=== PATIENT | male | born 1950 | race Caucasian/White ===

== ENCOUNTER → 2017-12-13 | Outpatient (CLI) | payer OTHER ==
[2017-12-03 13:37] VITALS: Ht 180.3 cm; Wt 120.5 kg
--- NOTE | 2017-12-03 14:17 | PAT Medication Instructions ---
Service Date Dec 03, 2017. Current Home Medication List Amlodipine Besylate-Atorvastat (Amlodipine Besylate/Atorv), 1 TAB PO Aspirin (Aspirin Ec), 81 MG PO QPM Cinnamon (Cinnamon Extract), 2 TAB PO QAM Clonazepam (Klonopin), 0.5 MG PO DAILY PRN for Anxiety/Insomnia Jhdhrwsizak-Sajnjpfxmqm-Lrq C- (Glucosamine 1500 Complex), 2 CAP PO QAM Lisinopril (Zestril), 40 MG PO QPM Metformin Hcl (Glucophage), 500 MG PO BID Metoprolol Succinate (Metoprolol Succinate ER), 200 MG PO QPM Ranitidine (Zantac), 150 MG PO BID Sertraline (Zoloft), 50 MG PO QAM Sertraline (Zoloft), 150 MG PO QPM Tramadol (Ultram), 100 MG PO Q4H PRN for Pain Zolpidem Tartrate (Zolpidem Tartrate), 1 TAB PO HS [chondrotin msm], 1,103 MG PO QAM Medication Instructions For Your Scheduled Surgery - Hold the following medications 2 weeks prior to surgery: [chondrotin msm], 1,103 MG PO QAM Wksswnknrmu-Skzahdovlbh-Cta C- (Glucosamine 1500 Complex), 2 CAP PO QAM Cinnamon (Cinnamon Extract), 2 TAB PO QAM - Hold the following medications 24 hours prior to surgery: Lisinopril (Zestril), 40 MG PO QPM - Hold the following medications the morning of surgery: Metformin Hcl (Glucophage), 500 MG PO BID - Take the following medications the morning of surgery with a sip of water: Tramadol (Ultram), 100 MG PO Q4H PRN for Pain (okay to take up to 4 hours prior to surgery if needed) Sertraline (Zoloft), 50 MG PO QAM Ranitidine (Zantac), 150 MG PO BID Amlodipine Besylate-Atorvastat (Amlodipine Besylate/Atorv), 1 TAB PO QAM - Take the following medications as scheduled the night before surgery: Zolpidem Tartrate (Zolpidem Tartrate), 1 TAB PO HS Sertraline (Zoloft), 150 MG PO QPM Tramadol (Ultram), 100 MG PO Q4H PRN for Pain (if needed) Ranitidine (Zantac), 150 MG PO BID Metoprolol Succinate (Metoprolol Succinate ER), 200 MG PO QPM Clonazepam (Klonopin), 0.5 MG PO DAILY PRN for Anxiety/Insomnia (if needed) Aspirin (Aspirin Ec), 81 MG PO QPM Metformin Hcl (Glucophage), 500 MG PO BID If you have any questions please call us at [phone] or [phone] or [phone]
[2017-12-03 15:05] LABS: BASO % 0.4 %; BASO ABS # 0.02 K/uL (0-0.2); EOS % 1.8 %; HEMATOCRIT 39.8 % (42-52); HEMOGLOBIN 13.2 g/dL (14.0-18.0); IG# 0.03 K/uL (0.00-0.02); LYMPH % 26.7 %; LYMPH ABS # 1.48 K/uL (1.2-3.4); MEAN CELL VOLUME 88.1 fL (80-100); MEAN CORPUSCULAR HEMOGLOBIN 29.2 pg (25-34); MEAN CORPUSCULAR HGB CONC 33.2 g/dl (32-36); MEAN PLATELET VOLUME 9.2 fL (7.4-10.4); MONO % 9.2 %; MONO ABS # 0.51 K/uL (0.11-0.59); NEUT % 61.4 %; NEUT ABS # 3.41 K/uL (1.4-6.5); PLATELET COUNT 166 K/uL (130-400); RED CELL DISTRIBUTION WIDTH CV 13.8 % (11.5-14.5); RED CELL DISTRIBUTION WIDTH SD 44.3 fL (36.4-46.3); WHITE BLOOD COUNT 5.55 K/uL (4.8-10.8)
--- NOTE | 2017-12-03 15:05 | DIAGNOSTIC IMAGING REPORT ---
CHEST 2 VIEWS ROUTINE CLINICAL HISTORY: 67 years-old Male presenting with preoperative assessment. TECHNIQUE: PA and lateral views of the chest were obtained. COMPARISON: None. FINDINGS: Atherosclerosis of aortic arch. Cardiac silhouette enlarged. Median sternotomy wires and bypass graft rings noted. Mediastinal surgical clips. Lungs and pleural spaces clear. Degenerative changes of the thoracic spine. Upper abdomen normal. IMPRESSION: 1. No acute cardiopulmonary disease. Electronically signed by: Roge Herrera M.D. 12/03/2017 3:03 PM Dictated Date/Time: 12/03/2017 3:02 PM
[2017-12-03 15:16] LABS: ALBUMIN 3.9 gm/dl (3.4-5.0); CREATININE 1.11 mg/dl (0.60-1.40)
[2017-12-03 15:18] LABS: INR 0.9 (0.9-1.1); PTT PATIENT 24.1 SECONDS (21.0-31.0)
--- NOTE | 2017-12-09 13:25 | HISTORY & PHYSICAL EXAMINATION ---
DATE OF ADMISSION: 12/30/2017 CHIEF COMPLAINT: Left knee pain. HISTORY OF PRESENT ILLNESS: Daniel is a 67-year-old male with a 1 year history of left knee pain. The patient rates his pain at 10/10. He has pain with his daily activities. He has limited standing and walking tolerance. Pain is worse with weightbearing. The patient has had bracing and anti-inflammatories as well as Tylenol and tramadol through the years without relief. He has failed conservative treatment and is scheduled for left knee replacement. PAST SURGICAL HISTORY: Cardiac bypass and sinus surgery. SOCIAL HISTORY: The patient denies alcohol or tobacco use. He lives in a single story home. He is and retired. FAMILY HISTORY: Negative for DVT. MEDICATIONS: Hydrochlorothiazide 25 mg, Lovaza 1 gram, ropinirole 1 mg, metformin 500 mg b.i.d., lisinopril 20 mg, glucosamine 1500 mg, cyclobenzaprine 10 mg, Norvasc 10 mg, Zoloft 100 mg, Toprol-XL 200 mg, clonazepam 0.5 mg 3 times daily p.r.n., aspirin 81 mg daily, and Mobic 15 mg daily. ALLERGIES: None. REVIEW OF SYSTEMS: See HPI. Ten other systems reviewed, all negative. PHYSICAL EXAMINATION: VITAL SIGNS: Height 5 feet 11 inches, weight 264, BMI is 37. GENERAL: This is a well-developed, well-nourished male who is alert and oriented x3. Mood and affect are appropriate. HEENT: Normocephalic, atraumatic. Mucous membranes are moist and intact. NECK: Supple without lymphadenopathy. HEART: Regular rate and rhythm without murmurs, rubs or gallops. LUNGS: Clear to auscultation without wheezes or rhonchi. ABDOMEN: Soft and nontender. Bowel sounds are equal and active. EXTREMITIES: No ecchymosis, redness or warmth. He has varus deformity. Range of motion is from 5-115 degrees with +1 laxity. He has moderate effusion. He has no edema. He is neurovascularly intact with +5/5 strength. X-RAY EXAMINATION: AP and lateral views show joint space narrowing and osteophyte formation of the left knee. PLAN: The patient will be admitted for a left total knee arthroplasty. We will plan on aspirin for DVT prophylaxis. The patient will have [facility] for home physical therapy upon discharge. His PCP is Dr. Barraza at [facility].
[~2017-12-13] VITALS: Ht 180.3 cm; Wt 120.5 kg
[~2017-12-13] MED LIST: AMLO-272 PO; ASPI81TA28 PO; CINN500C13 PO; CLON0.5T3 PO; GLC/500 PO; GLUC15002 PO; LISI40TA PO; RANI150T85 PO; SERT-234 PO; SERT50TA PO; TPRSR/100 PO; TRAM-10 PO; ZOLP10TA6 PO; [UNRECOGNIZED DRUG - OTHER] PO
== END | disposition home or self-care (01) ==
LOC: C.LAB 08:00 → EDSTATUS 12-30 08:09
DX: Z01.812 Encounter for preprocedural laboratory examination (principal); Z01.810 Encounter for preprocedural cardiovascular examination; Z01.818 Encounter for other preprocedural examination

== ENCOUNTER → 2018-06-08 | Outpatient (CLI) | payer OTHER ==
[~2018-06-08] MED LIST changes: -CLON0.5T3 PO; +KLN/5 PO
--- NOTE | 2018-06-08 10:07 | DIAGNOSTIC IMAGING REPORT ---
CHEST 2 VIEWS ROUTINE CLINICAL HISTORY: Preoperative chest COMPARISON STUDY: December 03, 2017 FINDINGS: There are postsurgical changes of a midline sternotomy. The cardiac and mediastinal contours remain stable. Indistinctness left heart border remains unchanged and is felt to be chronic. Soft tissue prominence of the right paramediastinal region also remains stable.[ IMPRESSION: Stable findings. No active disease in the chest. Electronically signed by: Taz Tavares M.D. 06/08/2018 10:06 AM Dictated Date/Time: 06/08/2018 10:05 AM
[2018-06-08 12:16] LABS: BASO % 0.5 %; BASO ABS # 0.03 K/uL (0-0.2); EOS % 1.4 %; EOS ABS # 0.09 K/uL (0-0.5); HEMATOCRIT 41.1 % (42-52); HEMOGLOBIN 13.4 g/dL (14.0-18.0); IG# 0.06 K/uL (0.00-0.02); LYMPH % 26.1 %; LYMPH ABS # 1.73 K/uL (1.2-3.4); MEAN CELL VOLUME 91.1 fL (80-100); MEAN CORPUSCULAR HEMOGLOBIN 29.7 pg (25-34); MEAN CORPUSCULAR HGB CONC 32.6 g/dl (32-36); MONO % 6.9 %; MONO ABS # 0.46 K/uL (0.11-0.59); NEUT % 64.2 %; NEUT ABS # 4.25 K/uL (1.4-6.5); PLATELET COUNT 187 K/uL (130-400); RED CELL DISTRIBUTION WIDTH CV 13.6 % (11.5-14.5); RED CELL DISTRIBUTION WIDTH SD 44.5 fL (36.4-46.3); WHITE BLOOD COUNT 6.62 K/uL (4.8-10.8)
[2018-06-08 12:33] LABS: BLOOD UREA NITROGEN 20 mg/dl (7-18); CALCIUM 9.2 mg/dl (8.5-10.1); CARBON DIOXIDE 26 mmol/L (21-32); CREATININE 1.15 mg/dl (0.60-1.40); GLUCOSE 107 mg/dl (70-99); POTASSIUM 5.3 mmol/L (3.5-5.1); SODIUM 139 mmol/L (136-145)
[2018-06-08 12:35] LABS: INR 0.9 (0.9-1.1); PTT PATIENT 23.6 SECONDS (21.0-31.0)
== END | disposition home or self-care (01) ==
LOC: C.CPL 09:37
DX: Z01.812 Encounter for preprocedural laboratory examination (principal); Z01.818 Encounter for other preprocedural examination; Z01.810 Encounter for preprocedural cardiovascular examination